=== PATIENT | female | born 1995 | race Caucasian/White ===

== ENCOUNTER 2022-12-15 18:30 | Emergency (ER) | payer OTHER ==
[~2022-12-15] VITALS: Ht 157.5 cm; Wt 105.9 kg
[2022-12-15] MEDS ORDERED: NS 1,000 ML IV ONE (20:20)
[2022-12-15 21:00] LABS: BASO % 0.3 % (0.0-1.0); EOS # 0.1 10^3/uL (0.0-0.5); EOS % 0.6 % (0.0-3.0); HEMATOCRIT 44.3 % (36.0-47.0); HEMOGLOBIN 14.7 g/dl (12.0-15.5); LYMPH # 0.8 10^3/uL (1.5-5.0); LYMPH % 5.6 % (24.0-44.0); MEAN CORPUSCULAR HEMOGLOBIN 29.5 pg (27.0-33.0); MEAN CORPUSCULAR HGB CONC 33.2 g/dl (32.0-36.5); MONO # 0.6 10^3/uL (0.0-0.8); MONO % 4.1 % (2.0-8.0); NEUTROPHILS # 12.6 10^3/uL (1.5-8.5); PLATELET COUNT, AUTOMATED 317 10^3/uL (150-450); RED BLOOD COUNT 4.98 10^6/uL (4.00-5.40); WHITE BLOOD COUNT 14.1 10^3/uL (4.0-10.0)
[2022-12-15 21:33] LABS: LIPASE 36 U/L (12-53)
[2022-12-15 21:36] LABS: ALKALINE PHOSPHATASE 184 U/L (46-116); ALT/SGPT 66 U/L (7.0-40); AST/SGOT 40 U/L (<34); BILIRUBIN,DIRECT 0.2 MG/DL (<0.4); BILIRUBIN,TOTAL 0.6 MG/DL (0.3-1.2); BLOOD UREA NITROGEN 13 MG/DL (9-23); CALCIUM LEVEL 9.2 MG/DL (8.5-10.1); CARBON DIOXIDE LEVEL 27 MMOL/L (20-31); CHLORIDE LEVEL 103 MMOL/L (98-107); CREATININE FOR GFR 0.72 MG/DL (0.55-1.30); GLOMERULAR FILTRATION RATE > 60.0 (>60); GLUCOSE, FASTING 88 MG/DL (60-100); POTASSIUM SERUM 4.5 MMOL/L (3.5-5.1); SODIUM LEVEL 137 MMOL/L (136-145); TOTAL PROTEIN 7.9 G/DL (5.7-8.2)
[2022-12-15 21:40] LABS: HCG, SERUM QUALITATIVE NEGATIVE (NEGATIVE)
[2022-12-15] MEDS ORDERED: ISOVUE-370 76% 100ML VIAL As Ordered ONE (21:52)
[2022-12-15] MEDS ORDERED: ONDA4TAB6 PO (23:44)
[2022-12-15] MEDS ORDERED: FAMO20TA PO (23:44)
[2022-12-15 23:53] VITALS: BP 136/73
[2022-12-16 00:25] LABS: HEPATITIS B SURFACE ANTIGEN NEGATIVE (NEGATIVE)
[2022-12-16 00:45] LABS: HEPATITIS B CORE ANTIBODY IGM NEGATIVE (NEGATIVE)
== END 2022-12-16 00:02 | disposition home or self-care (01) ==
LOC: M ED 18:30
DX: K52.9 Noninfective gastroenteritis and colitis, unspecified (principal); E03.9 Hypothyroidism, unspecified; Z87.442 Personal history of urinary calculi; Z79.83 Long term (current) use of bisphosphonates; Z79.899 Other long term (current) drug therapy
CPT/HCPCS: 36415; 74177; 80048; 80076; 81001; 83690; 84703; 85025; 86705; 86709; 86803; 87340; 87507; 93005; 99284; Q9967